=== PATIENT | male | born 1965 | race Caucasian/White ===

== ENCOUNTER → 2022-07-08 | Day surgery (SDC) | payer BC ==
[~2022-07-08] MED LIST: Flumazenil 0.1 MG/ML 10 ML MDV ONE; Ketamine 200 MG/20 ML MDV ONE; Midazolam 1 MG/ML 2 ML SDV ONE; Propofol 200 MG/20 ML SDV ONE; fentaNYL 50 MCG/ML SDV ONE
== END ==
LOC: CC.SDS 09:44
PROVIDERS: ATTEND Family Medicine
DX: Z12.11 Encounter for screening for malignant neoplasm of colon (principal); K57.30 Diverticulosis of large intestine without perforation or abscess without bleeding; F41.9 Anxiety disorder, unspecified; I10 Essential (primary) hypertension; E78.5 Hyperlipidemia, unspecified; N40.0 Benign prostatic hyperplasia without lower urinary tract symptoms; R05.8 Other specified cough; T46.4X5A Adverse effect of angiotensin-converting-enzyme inhibitors, initial encounter; Z79.899 Other long term (current) drug therapy; Z98.890 Other specified postprocedural states
CPT/HCPCS: J2250; J2704; J3010